=== PATIENT | male | born 1980 | race Asian ===

== ENCOUNTER 2020-09-05 11:08 | Day surgery (SDC) | payer OTHER ==
[~2020-09-05] VITALS: Ht 175.3 cm; Wt 72.7 kg
[2020-09-05 11:20] VITALS: BP 128/75
[2020-09-05] MEDS ORDERED: LIDOcaine Viscous 15ml cup ONE (11:29)
[2020-09-05] MEDS ORDERED: MIDAZolam 1 MG/ML 5ML VIAL ONE (11:29)
[2020-09-05] MEDS ORDERED: fentaNYL/PF 50MCG/1 ML 2ML syringe ONE (11:29)
[2020-09-05] MEDS ORDERED: TENO25TA PO (11:48)
[2020-09-05 12:40] VITALS: BP 107/71
[2020-09-05 12:50] VITALS: BP 104/61
[2020-09-05 13:00] VITALS: BP 93/50
[2020-09-05 13:10] VITALS: BP 97/54
== END 2020-09-05 13:15 | disposition home or self-care (01) ==
LOC: GI LAB 11:08 → EEVIPCON 13:30
PROVIDERS: ATTEND Internal Medicine Gastroenterology
DX: B19.10 Unspecified viral hepatitis B without hepatic coma (principal)
CPT/HCPCS: 43235; J2250; J3010; J7040; 99152; A4620